=== PATIENT | male | born 1935 | race Caucasian/White ===

== ENCOUNTER 2020-11-15 11:24 | Outpatient (CLI) | payer OTHER, SELFPAY | END 2020-11-15 11:25 | disposition home or self-care (01) | LOC: CSHWCC 11:24 | PROVIDERS: ATTEND Nurse Practitioner Family | DX: I87.333 Chronic venous hypertension (idiopathic) with ulcer and inflammation of bilateral lower extremity (principal); I87.2 Venous insufficiency (chronic) (peripheral); L89.612 Pressure ulcer of right heel, stage 2; L89.623 Pressure ulcer of left heel, stage 3; L97.422 Non-pressure chronic ulcer of left heel and midfoot with fat layer exposed; L97.812 Non-pressure chronic ulcer of other part of right lower leg with fat layer exposed; L97.322 Non-pressure chronic ulcer of left ankle with fat layer exposed; I89.0 Lymphedema, not elsewhere classified; I70.244 Atherosclerosis of native arteries of left leg with ulceration of heel and midfoot; R60.0 Localized edema; I48.20 Chronic atrial fibrillation, unspecified; L30.8 Other specified dermatitis; Z74.01 Bed confinement status | CPT/HCPCS: 11042; 29581; 99213; G0463 ==

== ENCOUNTER 2020-12-06 11:25 | Outpatient (CLI) | payer OTHER, SELFPAY | END 2020-12-06 11:26 | disposition home or self-care (01) | LOC: CSHWCC 11:25 | PROVIDERS: ATTEND Nurse Practitioner Family | DX: L89.612 Pressure ulcer of right heel, stage 2 (principal); L89.623 Pressure ulcer of left heel, stage 3; I87.332 Chronic venous hypertension (idiopathic) with ulcer and inflammation of left lower extremity; I87.331 Chronic venous hypertension (idiopathic) with ulcer and inflammation of right lower extremity; L97.812 Non-pressure chronic ulcer of other part of right lower leg with fat layer exposed; L97.322 Non-pressure chronic ulcer of left ankle with fat layer exposed; I70.244 Atherosclerosis of native arteries of left leg with ulceration of heel and midfoot; L97.422 Non-pressure chronic ulcer of left heel and midfoot with fat layer exposed; R60.0 Localized edema; I10 Essential (primary) hypertension; I48.20 Chronic atrial fibrillation, unspecified; I87.2 Venous insufficiency (chronic) (peripheral); I89.0 Lymphedema, not elsewhere classified; L30.8 Other specified dermatitis; R60.9 Edema, unspecified; Z74.01 Bed confinement status | CPT/HCPCS: 11042; 29581; 99213; G0463 ==

== ENCOUNTER 2020-12-20 11:20 | Outpatient (CLI) | payer SELFPAY | END 2020-12-20 11:21 | disposition home or self-care (01) | LOC: CSHWCC 11:20 | PROVIDERS: ATTEND Nurse Practitioner Family | DX: L89.612 Pressure ulcer of right heel, stage 2 (principal); L89.623 Pressure ulcer of left heel, stage 3; I87.333 Chronic venous hypertension (idiopathic) with ulcer and inflammation of bilateral lower extremity; I87.2 Venous insufficiency (chronic) (peripheral); L97.812 Non-pressure chronic ulcer of other part of right lower leg with fat layer exposed; L97.322 Non-pressure chronic ulcer of left ankle with fat layer exposed; I70.244 Atherosclerosis of native arteries of left leg with ulceration of heel and midfoot; I48.20 Chronic atrial fibrillation, unspecified; I48.91 Unspecified atrial fibrillation; I89.0 Lymphedema, not elsewhere classified; L30.8 Other specified dermatitis; R60.9 Edema, unspecified; R60.0 Localized edema; Z74.01 Bed confinement status | CPT/HCPCS: 29581; 99213; G0463 ==

== ENCOUNTER 2021-01-03 07:54 | Outpatient (CLI) | payer OTHER, SELFPAY | END 2021-01-03 07:55 | disposition home or self-care (01) | LOC: CSHWCC 07:54 | PROVIDERS: ATTEND Nurse Practitioner Family | DX: L89.612 Pressure ulcer of right heel, stage 2 (principal); L89.623 Pressure ulcer of left heel, stage 3; I87.332 Chronic venous hypertension (idiopathic) with ulcer and inflammation of left lower extremity; I87.331 Chronic venous hypertension (idiopathic) with ulcer and inflammation of right lower extremity; L97.812 Non-pressure chronic ulcer of other part of right lower leg with fat layer exposed; L97.322 Non-pressure chronic ulcer of left ankle with fat layer exposed; I70.244 Atherosclerosis of native arteries of left leg with ulceration of heel and midfoot; L97.422 Non-pressure chronic ulcer of left heel and midfoot with fat layer exposed; I10 Essential (primary) hypertension; I48.20 Chronic atrial fibrillation, unspecified; I87.2 Venous insufficiency (chronic) (peripheral); I89.0 Lymphedema, not elsewhere classified; L30.8 Other specified dermatitis; R60.0 Localized edema; Z74.01 Bed confinement status | CPT/HCPCS: 11042; 29581; 99213; G0463 ==

== ENCOUNTER 2021-03-28 09:16 | Outpatient (CLI) | payer MEDICARE | END 2021-03-28 09:17 | disposition home or self-care (01) | LOC: CSHWCC 09:16 | PROVIDERS: ATTEND Nurse Practitioner Family | DX: L89.623 Pressure ulcer of left heel, stage 3 (principal); I87.331 Chronic venous hypertension (idiopathic) with ulcer and inflammation of right lower extremity; I87.2 Venous insufficiency (chronic) (peripheral); L97.812 Non-pressure chronic ulcer of other part of right lower leg with fat layer exposed; I89.0 Lymphedema, not elsewhere classified; R60.0 Localized edema; L30.8 Other specified dermatitis; I48.20 Chronic atrial fibrillation, unspecified; I10 Essential (primary) hypertension | CPT/HCPCS: 11042; 29581; 97607; 99213; G0463 ==

== ENCOUNTER 2021-04-11 09:28 | Outpatient (CLI) | payer MEDICARE | END 2021-04-11 09:29 | disposition home or self-care (01) | LOC: CSHWCC 09:28 | PROVIDERS: ATTEND Nurse Practitioner Family | DX: L89.623 Pressure ulcer of left heel, stage 3 (principal); I87.2 Venous insufficiency (chronic) (peripheral); I87.331 Chronic venous hypertension (idiopathic) with ulcer and inflammation of right lower extremity; L97.812 Non-pressure chronic ulcer of other part of right lower leg with fat layer exposed; I48.20 Chronic atrial fibrillation, unspecified; I48.91 Unspecified atrial fibrillation; I89.0 Lymphedema, not elsewhere classified; R60.0 Localized edema; L30.8 Other specified dermatitis; Z74.01 Bed confinement status | CPT/HCPCS: 11042; 29581; 97607; 99213; G0463 ==

== ENCOUNTER 2021-04-18 09:55 | Outpatient (CLI) | payer MEDICARE | END 2021-04-18 09:56 | disposition home or self-care (01) | LOC: CSHWCC 09:55 | PROVIDERS: ATTEND Nurse Practitioner Family | DX: I87.331 Chronic venous hypertension (idiopathic) with ulcer and inflammation of right lower extremity (principal); I10 Essential (primary) hypertension; I87.2 Venous insufficiency (chronic) (peripheral); L97.812 Non-pressure chronic ulcer of other part of right lower leg with fat layer exposed; I89.0 Lymphedema, not elsewhere classified; L30.8 Other specified dermatitis; L89.623 Pressure ulcer of left heel, stage 3; R60.0 Localized edema; Z74.01 Bed confinement status; I48.20 Chronic atrial fibrillation, unspecified | CPT/HCPCS: 11042; 97607; 99213; G0463 ==

== ENCOUNTER 2021-06-25 09:34 | Outpatient (CLI) | payer MEDICARE | END 2021-06-25 09:35 | disposition home or self-care (01) | LOC: CSHWCC 09:34 | PROVIDERS: ATTEND Nurse Practitioner Family | DX: I87.311 Chronic venous hypertension (idiopathic) with ulcer of right lower extremity (principal); I87.2 Venous insufficiency (chronic) (peripheral); L97.812 Non-pressure chronic ulcer of other part of right lower leg with fat layer exposed; I89.0 Lymphedema, not elsewhere classified; R60.0 Localized edema; I48.20 Chronic atrial fibrillation, unspecified; L30.8 Other specified dermatitis; Z74.01 Bed confinement status | CPT/HCPCS: 11042; 29581 ==

== ENCOUNTER 2021-07-02 08:37 | Outpatient (CLI) | payer MEDICARE | END 2021-07-02 08:38 | disposition home or self-care (01) | LOC: CSHWCC 08:37 | PROVIDERS: ATTEND Nurse Practitioner Family | DX: I87.311 Chronic venous hypertension (idiopathic) with ulcer of right lower extremity (principal); L97.812 Non-pressure chronic ulcer of other part of right lower leg with fat layer exposed; R60.0 Localized edema; I10 Essential (primary) hypertension; I48.20 Chronic atrial fibrillation, unspecified; I87.2 Venous insufficiency (chronic) (peripheral); I89.0 Lymphedema, not elsewhere classified; L30.8 Other specified dermatitis; Z74.01 Bed confinement status | CPT/HCPCS: 11042; 29581 ==

== ENCOUNTER 2021-07-16 09:38 | Outpatient (CLI) | payer MEDICARE | END 2021-07-16 09:39 | disposition home or self-care (01) | LOC: CSHWCC 09:38 | PROVIDERS: ATTEND Nurse Practitioner Family | DX: I87.311 Chronic venous hypertension (idiopathic) with ulcer of right lower extremity (principal); L97.812 Non-pressure chronic ulcer of other part of right lower leg with fat layer exposed; R60.0 Localized edema; I10 Essential (primary) hypertension; I48.20 Chronic atrial fibrillation, unspecified; I87.2 Venous insufficiency (chronic) (peripheral); I89.0 Lymphedema, not elsewhere classified; L30.8 Other specified dermatitis; Z74.01 Bed confinement status | CPT/HCPCS: 29581; 97607 ==

== ENCOUNTER 2021-07-23 10:13 | Outpatient (CLI) | payer MEDICARE | END 2021-07-23 10:14 | disposition home or self-care (01) | LOC: CSHWCC 10:13 | PROVIDERS: ATTEND Nurse Practitioner Family | DX: I87.311 Chronic venous hypertension (idiopathic) with ulcer of right lower extremity (principal); L97.812 Non-pressure chronic ulcer of other part of right lower leg with fat layer exposed; I87.2 Venous insufficiency (chronic) (peripheral); I10 Essential (primary) hypertension; I48.20 Chronic atrial fibrillation, unspecified; L30.8 Other specified dermatitis; I89.0 Lymphedema, not elsewhere classified; Z74.01 Bed confinement status; R60.0 Localized edema | CPT/HCPCS: 11042; 97607 ==

== ENCOUNTER 2021-07-30 08:38 | Outpatient (CLI) | payer MEDICARE | END 2021-07-30 08:39 | disposition home or self-care (01) | LOC: CSHWCC 08:38 | PROVIDERS: ATTEND Nurse Practitioner Family | DX: I87.311 Chronic venous hypertension (idiopathic) with ulcer of right lower extremity (principal); I87.2 Venous insufficiency (chronic) (peripheral); L97.812 Non-pressure chronic ulcer of other part of right lower leg with fat layer exposed; I48.20 Chronic atrial fibrillation, unspecified; I89.0 Lymphedema, not elsewhere classified; R60.0 Localized edema; L30.8 Other specified dermatitis; I10 Essential (primary) hypertension; Z74.01 Bed confinement status | CPT/HCPCS: 29581; 99213; G0463 ==

== ENCOUNTER 2021-08-06 11:09 | Outpatient (CLI) | payer MEDICARE | END 2021-08-06 11:10 | disposition home or self-care (01) | LOC: CSHWCC 11:09 | PROVIDERS: ATTEND Nurse Practitioner Family | DX: I87.311 Chronic venous hypertension (idiopathic) with ulcer of right lower extremity (principal); I10 Essential (primary) hypertension; I48.20 Chronic atrial fibrillation, unspecified; I87.2 Venous insufficiency (chronic) (peripheral); L97.812 Non-pressure chronic ulcer of other part of right lower leg with fat layer exposed; I89.0 Lymphedema, not elsewhere classified; L30.8 Other specified dermatitis; R60.0 Localized edema; Z74.01 Bed confinement status | CPT/HCPCS: 29581; 97607 ==

== ENCOUNTER 2021-08-13 10:03 | Outpatient (CLI) | payer MEDICARE | END 2021-08-13 10:04 | disposition home or self-care (01) | LOC: CSHWCC 10:03 | PROVIDERS: ATTEND Nurse Practitioner Family | DX: I87.311 Chronic venous hypertension (idiopathic) with ulcer of right lower extremity (principal); L97.812 Non-pressure chronic ulcer of other part of right lower leg with fat layer exposed; R60.0 Localized edema; I48.20 Chronic atrial fibrillation, unspecified; I87.2 Venous insufficiency (chronic) (peripheral); L30.8 Other specified dermatitis; I89.0 Lymphedema, not elsewhere classified; Z74.01 Bed confinement status ==

== ENCOUNTER 2021-08-20 10:32 | Outpatient (CLI) | payer MEDICARE | END 2021-08-20 10:33 | disposition home or self-care (01) | LOC: CSHWCC 10:32 | PROVIDERS: ATTEND Nurse Practitioner Family | DX: I87.311 Chronic venous hypertension (idiopathic) with ulcer of right lower extremity (principal); L97.812 Non-pressure chronic ulcer of other part of right lower leg with fat layer exposed; R60.0 Localized edema; I10 Essential (primary) hypertension; I48.20 Chronic atrial fibrillation, unspecified; I87.2 Venous insufficiency (chronic) (peripheral); L30.8 Other specified dermatitis; I89.0 Lymphedema, not elsewhere classified; Z74.01 Bed confinement status | CPT/HCPCS: 29581; 97605 ==

== ENCOUNTER 2021-08-27 08:47 | Outpatient (CLI) | payer MEDICARE | END 2021-08-27 08:48 | disposition home or self-care (01) | LOC: CSHWCC 08:47 | PROVIDERS: ATTEND Nurse Practitioner Family | DX: I87.311 Chronic venous hypertension (idiopathic) with ulcer of right lower extremity (principal); I10 Essential (primary) hypertension; I48.20 Chronic atrial fibrillation, unspecified; I87.2 Venous insufficiency (chronic) (peripheral); L97.812 Non-pressure chronic ulcer of other part of right lower leg with fat layer exposed; I89.0 Lymphedema, not elsewhere classified; L30.8 Other specified dermatitis; R60.0 Localized edema; Z74.01 Bed confinement status | CPT/HCPCS: 29581; 97607 ==

== ENCOUNTER 2021-09-03 11:53 | Outpatient (CLI) | payer MEDICARE | END 2021-09-03 11:54 | disposition home or self-care (01) | LOC: CSHWCC 11:53 | PROVIDERS: ATTEND Nurse Practitioner Family | DX: I87.311 Chronic venous hypertension (idiopathic) with ulcer of right lower extremity (principal); I87.2 Venous insufficiency (chronic) (peripheral); L97.812 Non-pressure chronic ulcer of other part of right lower leg with fat layer exposed; I10 Essential (primary) hypertension; I48.20 Chronic atrial fibrillation, unspecified; I48.91 Unspecified atrial fibrillation; I89.0 Lymphedema, not elsewhere classified; L30.8 Other specified dermatitis; R60.0 Localized edema; Z74.01 Bed confinement status ==

== ENCOUNTER 2021-09-19 11:12 | Outpatient (CLI) | payer MEDICARE | END 2021-09-19 11:13 | disposition home or self-care (01) | LOC: CSHWCC 11:12 | PROVIDERS: ATTEND Nurse Practitioner Family | DX: I87.311 Chronic venous hypertension (idiopathic) with ulcer of right lower extremity (principal); I87.2 Venous insufficiency (chronic) (peripheral); L97.812 Non-pressure chronic ulcer of other part of right lower leg with fat layer exposed; I89.0 Lymphedema, not elsewhere classified; R60.0 Localized edema; I48.20 Chronic atrial fibrillation, unspecified; L30.8 Other specified dermatitis; Z74.01 Bed confinement status ==

== ENCOUNTER 2021-10-24 11:03 | Outpatient (CLI) | payer MEDICARE | END 2021-10-24 11:04 | disposition home or self-care (01) | LOC: CSHWCC 11:03 | PROVIDERS: ATTEND Nurse Practitioner Family | DX: I87.311 Chronic venous hypertension (idiopathic) with ulcer of right lower extremity (principal); L97.819 Non-pressure chronic ulcer of other part of right lower leg with unspecified severity; R60.0 Localized edema | CPT/HCPCS: 11042 ==

== ENCOUNTER 2023-03-13 14:06 | Outpatient (CLI) | payer MEDICARE | END 2023-03-13 14:07 | disposition home or self-care (01) | LOC: CSHWCC 14:06 | PROVIDERS: ATTEND Nurse Practitioner Family | DX: R60.0 Localized edema (principal); S91.301D Unspecified open wound, right foot, subsequent encounter | CPT/HCPCS: 97597 ==

== ENCOUNTER 2023-04-10 14:43 | Outpatient (CLI) | payer MEDICARE | END 2023-04-10 14:44 | disposition home or self-care (01) | LOC: CSHWCC 14:43 | PROVIDERS: ATTEND Nurse Practitioner Family | DX: S91.301D Unspecified open wound, right foot, subsequent encounter (principal); R60.0 Localized edema | CPT/HCPCS: 97139; G0463; 99213 ==

== ENCOUNTER 2023-10-06 10:02 | Outpatient (CLI) | payer MEDICARE | END 2023-10-06 10:03 | disposition home or self-care (01) | LOC: CSHWCC 10:02 | PROVIDERS: ATTEND Nurse Practitioner Family | DX: I87.312 Chronic venous hypertension (idiopathic) with ulcer of left lower extremity (principal); L97.522 Non-pressure chronic ulcer of other part of left foot with fat layer exposed; I89.0 Lymphedema, not elsewhere classified; I73.9 Peripheral vascular disease, unspecified; L97.929 Non-pressure chronic ulcer of unspecified part of left lower leg with unspecified severity | CPT/HCPCS: 11042 ==

== ENCOUNTER 2023-10-13 14:51 | Outpatient (CLI) | payer MEDICARE | END 2023-10-13 14:52 | disposition home or self-care (01) | LOC: CSHWCC 14:51 | PROVIDERS: ATTEND Nurse Practitioner Family | DX: I87.312 Chronic venous hypertension (idiopathic) with ulcer of left lower extremity (principal); L97.522 Non-pressure chronic ulcer of other part of left foot with fat layer exposed; I73.9 Peripheral vascular disease, unspecified; I89.0 Lymphedema, not elsewhere classified | CPT/HCPCS: 11042 ==

== ENCOUNTER 2023-10-20 15:15 | Outpatient (CLI) | payer MEDICARE | END 2023-10-20 15:16 | disposition home or self-care (01) | LOC: CSHWCC 15:15 | PROVIDERS: ATTEND Nurse Practitioner Family | DX: I87.312 Chronic venous hypertension (idiopathic) with ulcer of left lower extremity (principal); L97.522 Non-pressure chronic ulcer of other part of left foot with fat layer exposed; I73.9 Peripheral vascular disease, unspecified; I89.0 Lymphedema, not elsewhere classified | CPT/HCPCS: 11042; 87070; 87077; 87186; 87205 ==

== ENCOUNTER 2023-11-17 16:56 | Outpatient (CLI) | payer MEDICARE | END 2023-11-17 16:57 | disposition home or self-care (01) | LOC: CSHWCC 16:56 | PROVIDERS: ATTEND Nurse Practitioner Family | DX: I87.312 Chronic venous hypertension (idiopathic) with ulcer of left lower extremity (principal); L97.522 Non-pressure chronic ulcer of other part of left foot with fat layer exposed; I89.0 Lymphedema, not elsewhere classified; I73.9 Peripheral vascular disease, unspecified | CPT/HCPCS: 11042 ==

== ENCOUNTER 2024-01-21 14:09 | Outpatient (CLI) | payer MEDICARE | END 2024-01-21 14:10 | disposition home or self-care (01) | LOC: CSHWCC 14:09 | PROVIDERS: ATTEND Family Medicine | DX: I87.312 Chronic venous hypertension (idiopathic) with ulcer of left lower extremity (principal); L97.522 Non-pressure chronic ulcer of other part of left foot with fat layer exposed; L97.322 Non-pressure chronic ulcer of left ankle with fat layer exposed; I73.9 Peripheral vascular disease, unspecified; I89.0 Lymphedema, not elsewhere classified | CPT/HCPCS: 97597; G0463; 99213 ==

== ENCOUNTER 2024-01-28 14:42 | Outpatient (CLI) | payer MEDICARE | END 2024-01-28 14:43 | disposition home or self-care (01) | LOC: CSHWCC 14:42 | PROVIDERS: ATTEND Nurse Practitioner Family | DX: I87.312 Chronic venous hypertension (idiopathic) with ulcer of left lower extremity (principal); L97.522 Non-pressure chronic ulcer of other part of left foot with fat layer exposed; L97.322 Non-pressure chronic ulcer of left ankle with fat layer exposed; I73.9 Peripheral vascular disease, unspecified; I89.0 Lymphedema, not elsewhere classified | CPT/HCPCS: 11042; 97597 ==

== ENCOUNTER 2024-02-04 15:34 | Outpatient (CLI) | payer MEDICARE | END 2024-02-04 15:35 | disposition home or self-care (01) | LOC: CSHWCC 15:34 | PROVIDERS: ATTEND Nurse Practitioner Family | DX: I87.312 Chronic venous hypertension (idiopathic) with ulcer of left lower extremity (principal); L97.522 Non-pressure chronic ulcer of other part of left foot with fat layer exposed; L97.322 Non-pressure chronic ulcer of left ankle with fat layer exposed; S50.812D Abrasion of left forearm, subsequent encounter; S50.811D Abrasion of right forearm, subsequent encounter; I73.9 Peripheral vascular disease, unspecified; I89.0 Lymphedema, not elsewhere classified | CPT/HCPCS: 11042; 97597 ==

== ENCOUNTER 2024-02-11 16:00 | Outpatient (CLI) | payer MEDICARE | END 2024-02-11 16:01 | disposition home or self-care (01) | LOC: CSHWCC 16:00 | PROVIDERS: ATTEND Nurse Practitioner Family | DX: S50.811D Abrasion of right forearm, subsequent encounter (principal); I87.312 Chronic venous hypertension (idiopathic) with ulcer of left lower extremity; L97.322 Non-pressure chronic ulcer of left ankle with fat layer exposed; L97.522 Non-pressure chronic ulcer of other part of left foot with fat layer exposed; I73.9 Peripheral vascular disease, unspecified; I89.0 Lymphedema, not elsewhere classified | CPT/HCPCS: 87070; 87077; 87186; 87205 ==

== ENCOUNTER 2024-02-18 15:01 | Outpatient (CLI) | payer MEDICARE | END 2024-02-18 15:02 | disposition home or self-care (01) | LOC: CSHWCC 15:01 | PROVIDERS: ATTEND Nurse Practitioner Family | DX: S80.811D Abrasion, right lower leg, subsequent encounter (principal); I87.312 Chronic venous hypertension (idiopathic) with ulcer of left lower extremity; L97.522 Non-pressure chronic ulcer of other part of left foot with fat layer exposed; L97.322 Non-pressure chronic ulcer of left ankle with fat layer exposed; I89.0 Lymphedema, not elsewhere classified; I73.9 Peripheral vascular disease, unspecified | CPT/HCPCS: 11042; 97597 ==

== ENCOUNTER 2024-02-24 15:52 | Outpatient (CLI) | payer MEDICARE | END 2024-02-24 15:53 | disposition home or self-care (01) | LOC: CSHWCC 15:52 | PROVIDERS: ATTEND Nurse Practitioner Family | DX: I87.312 Chronic venous hypertension (idiopathic) with ulcer of left lower extremity (principal); S80.811D Abrasion, right lower leg, subsequent encounter; L97.522 Non-pressure chronic ulcer of other part of left foot with fat layer exposed; L97.322 Non-pressure chronic ulcer of left ankle with fat layer exposed; I73.9 Peripheral vascular disease, unspecified; I89.0 Lymphedema, not elsewhere classified | CPT/HCPCS: 11042 ==

== ENCOUNTER 2024-03-09 12:58 | Outpatient (CLI) | payer MEDICARE | END 2024-03-09 12:59 | disposition home or self-care (01) | LOC: CSHWCC 12:58 | PROVIDERS: ATTEND Nurse Practitioner Family | DX: S80.811D Abrasion, right lower leg, subsequent encounter (principal); I87.312 Chronic venous hypertension (idiopathic) with ulcer of left lower extremity; L97.522 Non-pressure chronic ulcer of other part of left foot with fat layer exposed; L97.322 Non-pressure chronic ulcer of left ankle with fat layer exposed; I73.9 Peripheral vascular disease, unspecified; I89.0 Lymphedema, not elsewhere classified | CPT/HCPCS: 11042 ==

== ENCOUNTER 2024-03-17 14:20 | Outpatient (CLI) | payer MEDICARE | END 2024-03-17 14:21 | disposition home or self-care (01) | LOC: CSHWCC 14:20 | PROVIDERS: ATTEND Nurse Practitioner Family | DX: I87.312 Chronic venous hypertension (idiopathic) with ulcer of left lower extremity (principal); L97.522 Non-pressure chronic ulcer of other part of left foot with fat layer exposed; L97.322 Non-pressure chronic ulcer of left ankle with fat layer exposed; S80.811D Abrasion, right lower leg, subsequent encounter; I73.9 Peripheral vascular disease, unspecified; I89.0 Lymphedema, not elsewhere classified | CPT/HCPCS: 11042 ==

== ENCOUNTER 2024-04-13 15:37 | Outpatient (CLI) | payer MEDICARE | END 2024-04-13 15:38 | disposition home or self-care (01) | LOC: CSHWCC 15:37 | PROVIDERS: ATTEND Nurse Practitioner Family | DX: I87.312 Chronic venous hypertension (idiopathic) with ulcer of left lower extremity (principal); L97.522 Non-pressure chronic ulcer of other part of left foot with fat layer exposed; I73.9 Peripheral vascular disease, unspecified; I89.0 Lymphedema, not elsewhere classified | CPT/HCPCS: 99212; G0463 ==

== ENCOUNTER 2024-07-13 08:30 | Outpatient (CLI) | payer MEDICARE | END 2024-07-13 08:31 | disposition home or self-care (01) | LOC: CSHWCC 08:30 | PROVIDERS: ATTEND Nurse Practitioner Family | DX: I87.312 Chronic venous hypertension (idiopathic) with ulcer of left lower extremity (principal); L97.522 Non-pressure chronic ulcer of other part of left foot with fat layer exposed; L97.322 Non-pressure chronic ulcer of left ankle with fat layer exposed; I73.9 Peripheral vascular disease, unspecified; I89.0 Lymphedema, not elsewhere classified | CPT/HCPCS: 11042 ==

== ENCOUNTER 2024-08-03 09:24 | Outpatient (CLI) | payer MEDICARE | END 2024-08-03 09:25 | disposition home or self-care (01) | LOC: CSHWCC 09:24 | PROVIDERS: ATTEND Nurse Practitioner Family | DX: I87.312 Chronic venous hypertension (idiopathic) with ulcer of left lower extremity (principal); L97.522 Non-pressure chronic ulcer of other part of left foot with fat layer exposed; L97.322 Non-pressure chronic ulcer of left ankle with fat layer exposed; I73.9 Peripheral vascular disease, unspecified; I89.0 Lymphedema, not elsewhere classified | CPT/HCPCS: 11042 ==

== ENCOUNTER 2024-08-10 11:33 | Outpatient (CLI) | payer MEDICARE | END 2024-08-10 11:34 | disposition home or self-care (01) | LOC: CSHWCC 11:33 | PROVIDERS: ATTEND Nurse Practitioner Family | DX: I87.312 Chronic venous hypertension (idiopathic) with ulcer of left lower extremity (principal); L97.522 Non-pressure chronic ulcer of other part of left foot with fat layer exposed; L97.322 Non-pressure chronic ulcer of left ankle with fat layer exposed; I73.9 Peripheral vascular disease, unspecified; I89.0 Lymphedema, not elsewhere classified | CPT/HCPCS: 11042 ==

== ENCOUNTER 2024-08-24 12:41 | Outpatient (CLI) | payer MEDICARE | END 2024-08-24 12:42 | disposition home or self-care (01) | LOC: CSHWCC 12:41 | PROVIDERS: ATTEND Nurse Practitioner Family | DX: I87.312 Chronic venous hypertension (idiopathic) with ulcer of left lower extremity (principal); L97.522 Non-pressure chronic ulcer of other part of left foot with fat layer exposed; L97.322 Non-pressure chronic ulcer of left ankle with fat layer exposed; I73.9 Peripheral vascular disease, unspecified; I89.0 Lymphedema, not elsewhere classified | CPT/HCPCS: 97597 ==

== ENCOUNTER 2024-10-01 14:31 | Outpatient (CLI) | payer MEDICARE | END 2024-10-01 14:32 | disposition home or self-care (01) | LOC: CSHWCC 14:31 | PROVIDERS: ATTEND Nurse Practitioner Family | DX: I87.312 Chronic venous hypertension (idiopathic) with ulcer of left lower extremity (principal); L97.512 Non-pressure chronic ulcer of other part of right foot with fat layer exposed; I73.9 Peripheral vascular disease, unspecified; I89.0 Lymphedema, not elsewhere classified; B35.3 Tinea pedis | CPT/HCPCS: 11042; G0463; 99214 ==